=== PATIENT | female | born 1960 | race Hispanic/Latino ===

== ENCOUNTER 2017-10-27 09:18 | Emergency (ER) | payer OTHER ==
[~2017-10-27] VITALS: Ht 147.3 cm; Wt 58.5 kg
[~2017-10-27 09:18] MED LIST: BACLOFEN10 MG PO; BENTYL10 MG PO; GABAPENTIN300 MG PO; HYDROCODON-ACE1 EA11 PO; KLONOPIN0.5 MG PO; LIPITOR20 MG PO; NAPROXEN250 MG PO; NORVASC5 MG PO; PHENERGAN SUPP25 MG PR; TYLENOL # 31 EA PO; ZOFRAN8 MG PO; ZOLOFT50 MG PO
[2017-10-27] MEDS ORDERED: SODIUM CHLORIDE 0.9% 1000ML 1,000 ML IV STA (10:10)
[2017-10-27 10:27] LABS: BASOPHILS % 0.3 % (0.0-1.0); EOSINOPHILS # (AUTO) 0.1 (0.0-0.4); HEMATOCRIT 38.4 % (34.2-44.1); LYMPHOCYTES # (AUTO) 2.1 (1.0-3.2); LYMPHOCYTES % 30.5 % (18.0-39.1); MEAN CORPUSCULAR HEMOGLOBIN 30.4 pg (28-32); MEAN CORPUSCULAR HGB CONC 33.9 g/dL (31-35); MEAN CORPUSCULAR VOLUME 89.7 fL (81-99); MONOCYTES # (AUTO) 0.5 (0.2-0.8); MONOCYTES % 6.4 % (4.4-11.3); NEUTROPHILS # (AUTO) 4.2 (2.1-6.9); NEUTROPHILS % 60.4 % (38.7-80.0); PLATELET COUNT 263 x10e3/uL (140-360); RED BLOOD COUNT 4.28 x10e6/uL (3.6-5.1)
[2017-10-27 10:40] LABS: ALANINE AMINOTRANSFERASE 19 IU/L (0-55); ALBUMIN 3.6 g/dL (3.5-5.0); ALKALINE PHOSPHATASE 120 IU/L (40-150); ANION GAP 10.9 mmol/L (8-16); BLOOD UREA NITROGEN 13 mg/dL (7-26); BUN/CREATININE RATIO 18 (6-25); CALCIUM 8.9 mg/dL (8.4-10.2); CARBON DIOXIDE 26 mmol/L (22-29); CHLORIDE 108 mmol/L (98-107); CREATINE KINASE 48 IU/L (29-168); CREATININE, SERUM 0.74 mg/dL (0.57-1.11); EST GLOMERULAR FILTRATION RATE > 60 ML/MIN (60-); GLUCOSE 84 mg/dL (74-118); POTASSIUM 3.9 mmol/L (3.5-5.1); SODIUM 141 mmol/L (136-145)
--- NOTE | 2017-10-27 10:46 | Diagnostic Imaging Report ---
PROCEDURE:CHEST 2 VIEWS TECHNIQUE:PA and lateral chest INDICATION:Cough; congestion COMPARISON:Patients [facility], , CHEST 2 VIEWS, 02/23/2016, 22:23. FINDINGS: Small right lower lobe airspace opacity. Lungs are otherwise clear. No pleural effusions. Normal heart size, mediastinal contour, and pulmonary vasculature. CONCLUSION: Small right lower lobe airspace opacity suggesting pneumonia in the setting of cough. Dictated by: Italo Whitney M.D. on 10/27/2017 at 10:54 Electronically approved by: Italo Whitney M.D. on 10/27/2017 at 10:54
[2017-10-27 13:10] VITALS: BP 127/68
== END 2017-10-27 13:25 | disposition home or self-care (01) ==
LOC: ER 09:18
DX: R05 Cough (principal); J15.9 Unspecified bacterial pneumonia; I10 Essential (primary) hypertension; Z85.038 Personal history of other malignant neoplasm of large intestine; Z85.3 Personal history of malignant neoplasm of breast
CPT/HCPCS: 36415; 71020; 80053; 82550; 82553; 83880; 84484; 85025; 87400; 99283; J7030

== ENCOUNTER 2017-11-20 01:44 | Emergency (ER) | payer OTHER ==
[~2017-11-20] VITALS: Ht 147.3 cm; Wt 58.5 kg
[2017-11-20] MEDS ORDERED: DIAZEPAM5 MG PO (01:58)
[2017-11-20] MEDS ORDERED: ALBUTEROL SULF 0.083% NEB SOLN 3 ML NEB NEB STA (02:06)
[2017-11-20] MEDS ORDERED: IPRATROPIUM BROMIDE 0.02% 2.5 ML NEB NEB ONE (02:15)
--- NOTE | 2017-11-20 03:49 | Diagnostic Imaging Report ---
EXAMINATION: CHEST 2 VIEWS INDICATION: Cough. COMPARISON: None FINDINGS: TUBES and LINES: None. LUNGS: Lungs are well inflated. Lungs are clear. There is no evidence of pneumonia or pulmonary edema. PLEURA: No pleural effusion or pneumothorax. HEART AND MEDIASTINUM: The cardiomediastinal silhouette is unremarkable. BONES AND SOFT TISSUES: No acute osseous lesion. Soft tissues are unremarkable. UPPER ABDOMEN: No free air under the diaphragm. IMPRESSION: No acute thoracic abnormality. Signed by: Dr. Jeison Salazar M.D. on 11/20/2017 3:45 AM
[2017-11-20] MEDS ORDERED: PROAIR HFA INH8.5 GM INH (04:04)
[2017-11-20] MEDS ORDERED: METHYLPREDNISOLO4 M1 PO (04:04)
[2017-11-20] MEDS ORDERED: TESSALON PERLE100 MG PO (04:05)
== END 2017-11-20 04:19 | disposition home or self-care (01) ==
LOC: ER 01:44
DX: R05 Cough (principal); J98.01 Acute bronchospasm; I10 Essential (primary) hypertension; F32.9 Major depressive disorder, single episode, unspecified; F41.9 Anxiety disorder, unspecified; Z85.038 Personal history of other malignant neoplasm of large intestine
CPT/HCPCS: 71046; 93005; 94640; 99284

== ENCOUNTER 2017-11-22 12:40 | Emergency (ER) | payer OTHER ==
[~2017-11-22] VITALS: Ht 147.3 cm; Wt 58.5 kg
[~2017-11-22 12:40] MED LIST changes: +DIAZEPAM5 MG PO; +METHYLPREDNISOLO4 M1 PO; +PROAIR HFA INH8.5 GM INH; +TESSALON PERLE100 MG PO
[2017-11-22] MEDS ORDERED: ALBUTEROL SULF 0.083% NEB SOLN 3 ML NEB NEB STA ×2 (12:52→16:31)
[2017-11-22] MEDS ORDERED: IPRATROPIUM BROMIDE 0.02% 2.5 ML NEB NEB STA ×2 (12:52→16:31)
[2017-11-22] MEDS ORDERED: SODIUM CHLORIDE 0.9% 1000ML 1,000 ML IV STA (12:52)
[2017-11-22] MEDS ORDERED: DEXAMETHASONE SOD PHOS 10 MG/1 ML VIAL INJ ONE (13:00)
[2017-11-22] MEDS ORDERED: ACETAMINOPHEN/CODEINE ELIX 120-12 MG/5 ML UDC PO ONE ×2 (13:00→16:45)
--- NOTE | 2017-11-22 14:38 | Diagnostic Imaging Report ---
PROCEDURE: Frontal and lateral views of the chest. COMPARISON: 11/20/17 INDICATIONS: COUGH, CHETS PAIN FINDINGS: Lines/tubes: None. Lungs: The lungs are well inflated and clear. There is no evidence of pneumonia or pulmonary edema. Pleura: There is no pleural effusion or pneumothorax. Heart and mediastinum: The heart and the mediastinum are normal. Bones: No acute bony abnormality. IMPRESSION: 1. No acute cardiopulmonary disease. Dictated by: Braxton Miguel M.D. on 11/22/2017 at 14:47 Electronically approved by: Braxton Miguel M.D. on 11/22/2017 at 14:47
[2017-11-22 15:16] LABS: BASOPHILS % 0.2 % (0.0-1.0); EOSINOPHILS % 0.2 % (0.0-6.0); HEMATOCRIT 44.2 % (34.2-44.1); HEMOGLOBIN 14.4 g/dL (12.0-16.0); LYMPHOCYTES # (AUTO) 2.7 (1.0-3.2); LYMPHOCYTES % 29.9 % (18.0-39.1); MEAN CORPUSCULAR HEMOGLOBIN 29.9 pg (28-32); MEAN CORPUSCULAR HGB CONC 32.6 g/dL (31-35); MEAN CORPUSCULAR VOLUME 91.7 fL (81-99); MONOCYTES # (AUTO) 0.5 (0.2-0.8); MONOCYTES % 5.4 % (4.4-11.3); NEUTROPHILS # (AUTO) 5.8 (2.1-6.9); NEUTROPHILS % 63.7 % (38.7-80.0); PLATELET COUNT 290 x10e3/uL (140-360); RED BLOOD COUNT 4.82 x10e6/uL (3.6-5.1); RED CELL DISTRIBUTION WIDTH 13.2 % (11.7-14.4)
[2017-11-22 15:25] LABS: INR 0.95; PROTHROMBIN TIME 13.1 seconds (11.9-14.5)
[2017-11-22 15:26] LABS: PARTIAL THROMBOPLASTIN TIME 29.3 seconds (23.8-35.5)
[2017-11-22 15:33] LABS: ALANINE AMINOTRANSFERASE 15 IU/L (0-55); ALBUMIN 4.3 g/dL (3.5-5.0); ALBUMIN/GLOBULIN RATIO 1.1 (0.8-2.0); ALKALINE PHOSPHATASE 117 IU/L (40-150); ANION GAP 12.1 mmol/L (8-16); BLOOD UREA NITROGEN 14 mg/dL (7-26); BUN/CREATININE RATIO 18 (6-25); CALCIUM 9.5 mg/dL (8.4-10.2); CARBON DIOXIDE 27 mmol/L (22-29); CHLORIDE 107 mmol/L (98-107); CREATINE KINASE 74 IU/L (29-168); CREATININE, SERUM 0.78 mg/dL (0.57-1.11); EST GLOMERULAR FILTRATION RATE > 60 ML/MIN (60-); GLUCOSE 101 mg/dL (74-118); POTASSIUM 4.1 mmol/L (3.5-5.1); SODIUM 142 mmol/L (136-145)
== END 2017-11-22 18:05 | disposition home or self-care (01) ==
LOC: ER 12:40
DX: R50.9 Fever, unspecified (principal); R05 Cough; J20.9 Acute bronchitis, unspecified; Z85.3 Personal history of malignant neoplasm of breast; Z85.048 Personal history of other malignant neoplasm of rectum, rectosigmoid junction, and anus; Z87.19 Personal history of other diseases of the digestive system
CPT/HCPCS: 36415; 71020; 80053; 82550; 82553; 83605; 84484; 85025; 85379; 85610; 85730; 87400; 93005; 94640; 99283; J1100; J7030; 71046

== ENCOUNTER 2018-07-09 08:07 | Inpatient (IN) | payer OTHER ==
[~2018-07-09] VITALS: Ht 147.3 cm; Wt 72.1 kg
[2018-07-09 08:57] LABS: CLARITY,URINE CLEAR (CLEAR); COLOR,URINE AMBER (YELLOW); KETONES,URINE NEGATIVE (NEGATIVE); LEUKOCYTE ESTERASE ,URINE NEGATIVE (NEGATIVE); NITRITE,URINE NEGATIVE (NEGATIVE); PROTEIN,URINE DIPSTICK TRACE (NEGATIVE)
[2018-07-09 08:58] LABS: BILIRUBIN,URINE 2+ (NEGATIVE); URINE UROBILINOGEN 4 mg/dL (0.2 - 1)
[2018-07-09 09:11] LABS: EPITHELIAL CELLS,URINE MANY /LPF
[2018-07-09 09:16] LABS: BASOPHILS % 0.2 % (0.0-1.0); EOSINOPHILS # (AUTO) 0.1 (0.0-0.4); EOSINOPHILS % 1.3 % (0.0-6.0); HEMATOCRIT 39.3 % (34.2-44.1); HEMOGLOBIN 12.8 g/dL (12.0-16.0); LYMPHOCYTES # (AUTO) 1.3 (1.0-3.2); LYMPHOCYTES % 29.1 % (18.0-39.1); MEAN CORPUSCULAR HEMOGLOBIN 29.9 pg (28-32); MEAN CORPUSCULAR HGB CONC 32.6 g/dL (31-35); MEAN CORPUSCULAR VOLUME 91.8 fL (81-99); MONOCYTES # (AUTO) 0.4 (0.2-0.8); MONOCYTES % 9.8 % (4.4-11.3); NEUTROPHILS # (AUTO) 2.7 (2.1-6.9); NEUTROPHILS % 59.4 % (38.7-80.0); PLATELET COUNT 174 x10e3/uL (140-360); RED BLOOD COUNT 4.28 x10e6/uL (3.6-5.1); RED CELL DISTRIBUTION WIDTH 13.7 % (11.7-14.4)
[2018-07-09 09:31] LABS: ALANINE AMINOTRANSFERASE 1024 IU/L (0-55); ALBUMIN 3.3 g/dL (3.5-5.0); ALBUMIN/GLOBULIN RATIO 0.8 (0.8-2.0); BLOOD UREA NITROGEN 10 mg/dL (7-26); BUN/CREATININE RATIO 13 (6-25); CALCIUM 9.2 mg/dL (8.4-10.2); CARBON DIOXIDE 25 mmol/L (22-29); CHLORIDE 105 mmol/L (98-107); CREATININE, SERUM 0.75 mg/dL (0.57-1.11); EST GLOMERULAR FILTRATION RATE > 60 ML/MIN (60-); GLUCOSE 112 mg/dL (74-118); SODIUM 139 mmol/L (136-145)
[2018-07-09 09:33] LABS: CALCIUM OXALATE CRYSTALS,UR MANY (FEW)
[2018-07-09] MEDS ORDERED: ONDANSETRON HCL INJ 2 MG/ML VIAL IV STA (09:38)
[2018-07-09] MEDS ORDERED: MORPHINE SULFATE 2 MG/ML SYR IV STA (09:38)
[2018-07-09] MEDS ORDERED: HYDROMORPHONE 1MG/1ML INJ IV STA (09:45)
[2018-07-09] MEDS ORDERED: PIPER-TAZ 3.375 GM 50 ML IV STA (09:45)
--- NOTE | 2018-07-09 09:52 | Diagnostic Imaging Report ---
EXAMINATION: PA and lateral views of the chest. COMPARISON: Chest two views 11/22/2017 CLINICAL HISTORY: Fever, chills, nausea DISCUSSION: Lines/tubes: None. Lungs: The lungs are well inflated and clear. There is no evidence of pneumonia or pulmonary edema. Pleura: There is no pleural effusion or pneumothorax. Heart and mediastinum: Cardiomediastinal silhouette is unremarkable. Pulmonary vasculature is normal. Bones and soft tissues: No acute bony abnormalities. Mild age-appropriate degenerative changes in the thoracic spine IMPRESSION: No acute cardiopulmonary abnormalities. Signed by: Dr. Ravindra Burton M.D. on 07/09/2018 9:49 AM
[2018-07-09 09:55] LABS: ALKALINE PHOSPHATASE 441 IU/L (40-150)
[2018-07-09] MEDS ORDERED: SODIUM CHLORIDE 0.9% 1000ML 1,000 ML ONE (11:50)
--- NOTE | 2018-07-09 12:21 | Diagnostic Imaging Report ---
EXAM: Right Upper Quadrant Ultrasound INDICATION: \S\ELEVATED LFT'S AND FEVER \S.br\COMPARISON: CT abdomen and pelvis 11/23/2015 TECHNIQUE: Transverse and longitudinal images of the right upper abdomen were obtained. FINDINGS: Liver: Size: 13.7 cm in the right midclavicular line, normal Appearance: Normal echogenicity, smooth contour Mass: No focal masses Gallbladder: Stones/Sludge: None Wall: 0.2 cm Appearance: No wall thickening, pericholecystic fluid or hydrops. Sonographic Fatima's Sign: Negative Bile Ducts: Intrahepatic Ducts: No dilatation Extrahepatic Ducts: Common bile duct measures 0.2 cm, no dilatation Pancreas: Obscured by overlying bowel gas. Kidneys: Length: Right 10.4 cm Echogenicity: Normal Collecting System: No hydronephrosis Stone: None Cyst/Mass: None Vessels: Aorta: Obscured by overlying bowel gas. Inferior Vena Cava: Visualized portions are normal Main Portal Vein: 0.9 cm, normal size with hepatopetal flow. Free Fluid: No ascites or pleural effusion IMPRESSION: 1. Pancreas and aorta are obscured by overlying bowel gas. Otherwise, unremarkable exam. Signed by: Dr. Ravindra Burton M.D. on 07/09/2018 12:18 PM
[2018-07-09] MEDS: ONDANSETRON HCL INJ 2 MG/ML VIAL IV PRN ×2 (16:10→23:09)
[2018-07-09] MEDS: CEFEPIME HCL 1 GM VIAL IV SCH (16:10)
[2018-07-09] MEDS: D5.45%NS/KCL 20MEQ 1,000 ML IV SCH (16:10)
[2018-07-09] MEDS: HYDROMORPHONE 1MG/1ML INJ IV PRN (16:10)
--- NOTE | 2018-07-09 16:14 | Diagnostic Imaging Report ---
EXAMINATION: CT of the abdomen and pelvis with contrast. TECHNIQUE: Spiral CT images of the abdomen and pelvis were performed from the lung bases to the lesser trochanters after the intravenous administration of 100 cc of Isovue 370 and the oral administration of water. Coronal and sagittal reformatted images were obtained. COMPARISON: CT abdomen and pelvis 11/23/2015 CLINICAL HISTORY:Fever, chills, acute hepatitis, lower abdominal pain for 2 days DISCUSSION: ABDOMEN/PELVIS: LOWER THORAX:Linear subsegmental atelectasis versus scarring in the right lower lobe HEPATOBILIARY: Diffuse hepatic steatosis. No focal lesions. Normal hepatic contour and size. No intra or extrahepatic biliary ductal dilation. GALLBLADDER: No radio-opaque stones or sludge. No wall thickening or pericholecystic fluid. SPLEEN: No splenomegaly. PANCREAS: No focal masses or ductal dilatation. ADRENALS: No adrenal nodules. KIDNEYS/URETERS: No hydronephrosis, stones, or solid mass lesions. PELVIC ORGANS/BLADDER: Bladder is unremarkable. Uterus is absent. No adnexal masses. PERITONEUM/RETROPERITONEUM: No free air or free fluid. LYMPH NODES: No intra-abdominal, retroperitoneal, pelvic or inguinal lymphadenopathy. VESSELS: The celiac trunk,superior and inferior mesenteric and bilateral renal arteries are patent The portal, superior mesenteric and splenic veins are patent. GI TRACT: No bowel dilation or evidence of obstruction. No pericolonic inflammatory changes. Stable soft tissue thickening in the presacral area, consistent with postoperative changes (series 2, image 70 and sagittal image 61). BONES AND SOFT TISSUE: No aggressive lytic lesions. Facet hypertrophy L5-S1. No soft tissue abnormalities. IMPRESSION: 1. No acute abdominopelvic abnormalities. Bowel is unremarkable. 2. Stable postoperative changes in the presacral region since 2016. 3. Diffuse hepatic steatosis. No focal lesions. Signed by: Dr. Ravindra Burton M.D. on 07/09/2018 4:11 PM
[2018-07-09] MEDS ORDERED: SODIUM CHLORIDE 0.9% 50ML 50 ML ONE (16:19)
[2018-07-09] MEDS ORDERED: IOPAMIDOL 370 MG/ML 200 ML INFUS..BTL INJ ONE (16:20)
[2018-07-09 16:46] LABS: INR 1.08; PROTHROMBIN TIME 13.2 seconds (11.9-14.5)
[2018-07-09 16:47] LABS: PARTIAL THROMBOPLASTIN TIME 29.7 seconds (23.8-35.5)
[2018-07-09 20:20] VITALS: BP 142/71
--- NOTE | 2018-07-09 20:28 | History and Physical ---
REASON FOR ADMISSION: This 57-year-old lady comes in with abdominal pain. HISTORY OF PRESENT ILLNESS: Ms. Martha Rosales is a 57-year-old female who was in her usual state of health until about a week ago. The patient started to have some abdominal pain. No recent travel. No history of travel. No recent history of taking exotic foods. The patient started with abdominal pain, and the pain was intractable. The patient went to work and was sent home after that. For the last 2 to 3 days, the patient had chills and fever that measured at 102 degrees. The patient comes in today for assessment of abdominal pain. PAST MEDICAL HISTORY 1. History of hypertension. 2. History of hyperlipidemia. 3. History of breast cancer. 4. History of ovarian cancer. 5. History of colon cancer. 6. History of COPD. SURGICAL HISTORY 1. History of hysterectomy. 2. History of cyst removal. 3. History of colon resection. 4. History of ostomy. 5. History of breast mastectomy. 6. History of appendectomy. 7. History of ovaries removed. FAMILY HISTORY: History of diabetes and hypertension. MEDICATIONS: At this time, no other medicines. The patient does take a statin. REVIEW OF SYSTEMS: Negative for chest pain. Positive for shortness of breath. Positive for nausea. Positive for vomiting. No constipation. No rectal bleeding. No hematochezia. No hematemesis. Positive for abdominal pain. No diplopia. No blurry vision. PHYSICAL EXAMINATION VITALS: Temperature 97.4, blood pressure 153/82, pulse 53. GENERAL: The patient is alert and oriented times 3. HEENT: Normocephalic and atraumatic. Icteric. ABDOMEN: Tender diffusely. Right upper quadrant and right lower quadrant tenderness, also epigastric tenderness. EXTREMITIES: No clubbing. No cyanosis. No edema. LABORATORY VALUES: Initial sodium was 139. AST was 726, ALT 1024, ALP 441, total protein 7.4. Hematology: White count is 4.50. Otherwise, everything is normal. Coags were normal. Serology pending hepatitis panel, toxoplasma panel, and EBU panel too. ASSESSMENT 1. A 57-year-old female with abdominal pain. 2. Elevated liver enzymes. 3. History of colon cancer. 4. History of ovarian cancer. 5. History of breast cancer. 6. Hypertension. 7. Hyperlipidemia. The patient has been started on hydromorphone, Zofran and cefepime 1 gram. Zosyn has been started, too. Will consult Dr. Rivera and also Dr. Mariusz Holley. Further recommendations per clinical course. IV fluids will be started, and Zofran will be given, too. The patient will also start back on her home medications, which include gabapentin. The patient has been on naproxen, Zofran, and sertraline 50 mg. Further recommendations per clinical course. Will continue monitoring her labs and also follow up with the consultants. Job#: [id number]
[2018-07-09 20:58] VITALS: BP 146/67
[2018-07-09 21:00] VITALS: BP 146/67
--- NOTE | 2018-07-09 21:19 | Consultation ---
DATE OF CONSULTATION: REASON FOR CONSULTATION: The patient has fever and chills, elevated liver enzymes. HISTORY OF PRESENT ILLNESS: Patient who is a 57-year-old female, who has history of breast cancer, history of ovarian cancer, history of colon cancer. The patient is telling she has these cancers several years ago. She was followed by [facility]. She was here recently for pneumonia. The patient is presenting with 1-month history of on and off abdominal pain, not feeling well, gets better, gets back again. The patient have fever and chills, anorexia. The patient came to emergency room. On admission, she was evaluated. It was found that she had elevated liver enzymes. Patient is being admitted. Patient does have abdominal pain, which is lower part of her abdomen. PAST MEDICAL HISTORY: Colon cancer 7 years ago, breast cancer 3 years ago, ovarian cancer 7 years ago. She said there are all clear, but she does not have any followup. LABORATORY DATA: Sodium 139, potassium 4.0, bilirubin was 3.1, AST 726, ALT 1024. Her white count is 4.5, hemoglobin 12.6, hematocrit 39, her platelets 174,000. Blood cultures are still pending. PHYSICAL EXAMINATION GENERAL: She is currently alert, oriented, does not seem to be in acute distress. VITALS: Stable, currently afebrile. HEENT: Normocephalic. Not icteric. NECK: Supple. CHEST: Clear bilaterally. HEART: S1 and S2. No S3, murmur. ABDOMEN: Soft. Her CAT scan did not reveal acute abnormality. IMPRESSION: Fever, chills, elevated liver enzymes. Computed tomography there does not seem to be a liver abnormality at the present time. An ultrasound of the liver also was not a good quality because there was bowel gas. I am concerned about intrahepatic, intrabiliary process and lesion. Continue with antibiotics. Will discuss with radiology what is the best way to assess that area. Will check amylase, will check lipase. May need hematology, oncology evaluation with the history of all the cancers that she has been having and she has not followed up with anyone yet. Will follow with you. Thank you for asking me to see this patient. Job#: [id number]
[2018-07-09] MEDS ORDERED: SINCALIDE 3 MCG/VIAL INJ ONE (22:39)
[2018-07-10] VITALS (8 sets, daily range): BP systolic 116–162; BP diastolic 56–74
[2018-07-10] MEDS: HYDROMORPHONE 1MG/1ML INJ IV PRN ×3 (01:50→21:52)
[2018-07-10] MEDS: D5.45%NS/KCL 20MEQ 1,000 ML IV SCH ×2 (04:21→17:31)
[2018-07-10] MEDS: CEFEPIME HCL 1 GM VIAL IV SCH ×2 (04:21→15:45)
--- NOTE | 2018-07-10 04:41 | Diagnostic Imaging Report ---
Hepatobiliary Scan with Gallbladder Ejection Fraction Clinical information: Upper abdominal pain Report: Following intravenous administration of 6 millicuries of Tc-99m mebrofenin, dynamic images of the abdomen in the anterior projection were obtained through 30 and 60 minutes. The patient was pretreated with Sincalide (CCK analog) 1.2 micrograms given NPO status for greater than 12-24 hours. Additional Sincalide (CCK analog) 1.2 micrograms was administered over 30 minutes with imaging for determination of gallbladder ejection fraction. Perfusion to the liver is normal. Extraction of tracer from the blood pool by the liver parenchyma is normal. Tracer is seen promptly within the biliary tract. The gallbladder begins to fill by 20 minutes post-injection of tracer and fills adequately. Tracer is seen in the small bowel by about 45 minutes. The gallbladder ejection fraction with administration of sincalide is 96% (normal greater than 40%). Impression: 1. Filling of the gallbladder excludes the diagnosis of acute cystic duct obstruction/acute cholecystitis. 2. Normal gallbladder ejection fraction of 96% does not support the clinical diagnosis of chronic cholecystitis/gallbladder dyskinesia. Signed by: Dr Faviola Cameron MD on 07/10/2018 4:37 AM
[2018-07-10] MEDS: ONDANSETRON HCL INJ 2 MG/ML VIAL IV PRN ×4 (06:20→21:52)
[2018-07-10 06:23] LABS: BASOPHILS % 0.6 % (0.0-1.0); EOSINOPHILS % 0.8 % (0.0-6.0); HEMATOCRIT 38.1 % (34.2-44.1); HEMOGLOBIN 12.5 g/dL (12.0-16.0); LYMPHOCYTES # (AUTO) 1.4 (1.0-3.2); LYMPHOCYTES % 26.9 % (18.0-39.1); MEAN CORPUSCULAR HEMOGLOBIN 30.1 pg (28-32); MEAN CORPUSCULAR HGB CONC 32.8 g/dL (31-35); MEAN CORPUSCULAR VOLUME 91.8 fL (81-99); MONOCYTES # (AUTO) 0.5 (0.2-0.8); MONOCYTES % 9.9 % (4.4-11.3); NEUTROPHILS # (AUTO) 3.2 (2.1-6.9); NEUTROPHILS % 61.4 % (38.7-80.0); PLATELET COUNT 183 x10e3/uL (140-360); RED BLOOD COUNT 4.15 x10e6/uL (3.6-5.1); RED CELL DISTRIBUTION WIDTH 13.8 % (11.7-14.4)
[2018-07-10 06:44] LABS: ALANINE AMINOTRANSFERASE 1159 IU/L (0-55); ALBUMIN 3.1 g/dL (3.5-5.0); ALBUMIN/GLOBULIN RATIO 0.8 (0.8-2.0); ALKALINE PHOSPHATASE 408 IU/L (40-150); AMYLASE 28 U/L (25-125); ANION GAP 13.2 mmol/L (8-16); BLOOD UREA NITROGEN 11 mg/dL (7-26); BUN/CREATININE RATIO 15 (6-25); CALCIUM 8.9 mg/dL (8.4-10.2); CARBON DIOXIDE 24 mmol/L (22-29); CHLORIDE 104 mmol/L (98-107); CREATININE, SERUM 0.72 mg/dL (0.57-1.11); EST GLOMERULAR FILTRATION RATE > 60 ML/MIN (60-); GLUCOSE 123 mg/dL (74-118); LIPASE 7 U/L (8-78); POTASSIUM 4.2 mmol/L (3.5-5.1); SODIUM 137 mmol/L (136-145)
[2018-07-10] MEDS ORDERED: GADOBENATE DIMEGLUMINE 1 ML IV ONE (23:58)
[2018-07-11 01:33] VITALS: BP 121/57
--- NOTE | 2018-07-11 02:00 | Diagnostic Imaging Report ---
EXAM: MRI MRCP O DATE: 07/11/2018 11:30 PM INDICATION: Elevated LFT , fever, chills COMPARISON: None TECHNIQUE: Multiplanar, multisequence imaging of the abdomen was performed pre and post-administration of IV contrast, 12 mL of MultiHance. Dynamic enhanced images of the abdomen were included. 3-D MRCP fat-saturated sequence was performed post contrast with MIP reformations. FINDINGS: LIVER/BILIARY: Liver is normal in contour and signal. No focal hepatic lesions. There is no intrahepatic or extrahepatic biliary ductal dilation. No evidence of choledocholithiasis. GALLBLADDER: No T2 filling defects to suggest stones. SPLEEN: Unremarkable PANCREAS: Unremarkable ADRENALS: No nodules KIDNEYS: No suspicious renal masses. No hydronephrosis. GI TRACT: No wall thickening or evidence of obstruction. VESSELS: Unremarkable PERITONEUM/RETROPERITONEUM: No free fluid LYMPH NODES: No lymphadenopathy BONES: No suspicious bone lesions. IMPRESSION: No acute abnormalities. Normal appearance of the biliary tree without ductal dilation or choledocholithiasis. Signed by: Dr Faviola Cameron MD on 07/11/2018 1:57 AM
[2018-07-11] MEDS: CEFEPIME HCL 1 GM VIAL IV SCH ×2 (03:34→16:30)
[2018-07-11] MEDS: HYDROMORPHONE 1MG/1ML INJ IV PRN ×2 (03:42→08:52)
[2018-07-11] MEDS: ONDANSETRON HCL INJ 2 MG/ML VIAL IV PRN ×2 (03:42→08:52)
[2018-07-11 04:00] VITALS: BP 99/53
[2018-07-11 05:49] LABS: BASOPHILS % 0.2 % (0.0-1.0); EOSINOPHILS # (AUTO) 0.1 (0.0-0.4); EOSINOPHILS % 1.5 % (0.0-6.0); HEMATOCRIT 37.4 % (34.2-44.1); HEMOGLOBIN 11.9 g/dL (12.0-16.0); LYMPHOCYTES # (AUTO) 1.5 (1.0-3.2); MEAN CORPUSCULAR HEMOGLOBIN 29.8 pg (28-32); MEAN CORPUSCULAR HGB CONC 31.8 g/dL (31-35); MEAN CORPUSCULAR VOLUME 93.5 fL (81-99); MONOCYTES # (AUTO) 0.6 (0.2-0.8); MONOCYTES % 11.2 % (4.4-11.3); NEUTROPHILS % 58.7 % (38.7-80.0); PLATELET COUNT 188 x10e3/uL (140-360); RED CELL DISTRIBUTION WIDTH 13.8 % (11.7-14.4)
--- NOTE | 2018-07-11 06:20 | Progress Note ---
DATE: This patient came in for abdominal pain. She still complains of abdominal pain. Was able to ambulate yesterday. Had some pain on urination, but she is feeling better. Her medications were reconciled. Liver enzymes are still elevated. PHYSICAL EXAMINATION GENERAL: The patient is alert and oriented times 3. VITAL SIGNS: Temperature is 97.5, pulse 55, blood pressure 121/57. HEENT: Normocephalic and atraumatic. Pupils reactive to light and accommodation. There is icterus. CV: S1 and S2 normal. Regular rate and rhythm. ABDOMEN: Tender in the right upper quadrant in the suprapubic area. EXTREMITIES: No clubbing. No cyanosis. No edema. LABORATORY VALUES: White count is 5.18, hemoglobin 11.9 and platelet count is 198,000. Chemistries are still pending, but yesterday's chemistries were AST of 870, ALT 1159, amylase 28, and lipase of 7. Urine culture is negative. ASSESSMENT 1. Right upper quadrant abdominal pain. 2. Elevated liver enzymes: HIDA scan was within normal limits. Hepatitis panel is pending. An magnetic resonance cholangiopancreatography has been ordered by Dr. Holley. Will continue monitoring the patient. If magnetic resonance cholangiopancreatography is normal, esophagogastroduodenoscopy will be done. 3. The patient has a history of colon cancer, ovarian cancer and breast cancer: Has been followed by MD Garcia. 4. Hypertension: Continue current medications. 5. Hyperlipidemia: Continue current medications. Will continue checking her liver enzymes and follow up with gastroenterology. Further recommendations depending on clinical care. Job#: [id number] RENALDO
[2018-07-11 06:22] LABS: ALANINE AMINOTRANSFERASE 1286 IU/L (0-55); ALBUMIN 2.9 g/dL (3.5-5.0); ALBUMIN/GLOBULIN RATIO 0.8 (0.8-2.0); ALKALINE PHOSPHATASE 361 IU/L (40-150); ANION GAP 10.8 mmol/L (8-16); BLOOD UREA NITROGEN 8 mg/dL (7-26); BUN/CREATININE RATIO 11 (6-25); CALCIUM 8.9 mg/dL (8.4-10.2); CARBON DIOXIDE 27 mmol/L (22-29); CHLORIDE 106 mmol/L (98-107); CREATININE, SERUM 0.75 mg/dL (0.57-1.11); EST GLOMERULAR FILTRATION RATE > 60 ML/MIN (60-); GLUCOSE 120 mg/dL (74-118); MAGNESIUM 2.1 MG/DL (1.3-2.1); POTASSIUM 4.8 mmol/L (3.5-5.1); SODIUM 139 mmol/L (136-145)
[2018-07-11] MEDS: D5.45%NS/KCL 20MEQ 1,000 ML IV SCH ×2 (06:39→21:35)
[2018-07-11 08:56] VITALS: BP 130/74
[2018-07-11 12:09] VITALS: BP 130/64
[2018-07-11] MEDS ORDERED: FENTANYL CITRATE/PF 100MCG/2 ML INJ ONE (15:09)
[2018-07-11] MEDS ORDERED: MIDAZOLAM HCL 2 MG/2 ML VIAL ONE (15:09)
[2018-07-11 18:18] VITALS: BP 165/72
[2018-07-11] MEDS ORDERED: PROPOFOL IV EMULSION 10 MG/ML 50 ML VIAL ONE (18:41)
[2018-07-11] MEDS ORDERED: LIDOCAINE HCL 2% LOCAL INJ 5 ML SDV VIAL INJ ONE (18:41)
[2018-07-11 20:00] VITALS: BP 131/68
[2018-07-12] VITALS (9 sets, daily range): BP systolic 121–166; BP diastolic 61–74
[2018-07-12] MEDS: HYDROMORPHONE 1MG/1ML INJ IV PRN ×3 (00:40→23:52)
[2018-07-12] MEDS: ONDANSETRON HCL INJ 2 MG/ML VIAL IV PRN ×3 (00:40→23:52)
[2018-07-12] MEDS: CEFEPIME HCL 1 GM VIAL IV SCH ×2 (04:07→15:12)
[2018-07-12 07:17] LABS: ALANINE AMINOTRANSFERASE 1590 IU/L (0-55); ALBUMIN/GLOBULIN RATIO 0.8 (0.8-2.0); ALKALINE PHOSPHATASE 368 IU/L (40-150); ANION GAP 10.4 mmol/L (8-16); BLOOD UREA NITROGEN 5 mg/dL (7-26); BUN/CREATININE RATIO 7 (6-25); CALCIUM 8.9 mg/dL (8.4-10.2); CARBON DIOXIDE 28 mmol/L (22-29); CHLORIDE 104 mmol/L (98-107); CREATININE, SERUM 0.72 mg/dL (0.57-1.11); EST GLOMERULAR FILTRATION RATE > 60 ML/MIN (60-); GLUCOSE 113 mg/dL (74-118); POTASSIUM 4.4 mmol/L (3.5-5.1); SODIUM 138 mmol/L (136-145)
[2018-07-12] MEDS: D5.45%NS/KCL 20MEQ 1,000 ML IV SCH (12:30)
[2018-07-13] VITALS (8 sets, daily range): BP systolic 107–160; BP diastolic 57–87
[2018-07-13] MEDS: D5.45%NS/KCL 20MEQ 1,000 ML IV SCH ×2 (00:42→15:40)
[2018-07-13] MEDS: CEFEPIME HCL 1 GM VIAL IV SCH ×2 (03:39→15:40)
[2018-07-13 06:04] LABS: BASOPHILS % 0.5 % (0.0-1.0); EOSINOPHILS # (AUTO) 0.1 (0.0-0.4); EOSINOPHILS % 1.6 % (0.0-6.0); HEMATOCRIT 39.8 % (34.2-44.1); HEMOGLOBIN 12.8 g/dL (12.0-16.0); LYMPHOCYTES # (AUTO) 2.9 (1.0-3.2); LYMPHOCYTES % 45.9 % (18.0-39.1); MEAN CORPUSCULAR HEMOGLOBIN 30.2 pg (28-32); MEAN CORPUSCULAR HGB CONC 32.2 g/dL (31-35); MEAN CORPUSCULAR VOLUME 93.9 fL (81-99); MONOCYTES # (AUTO) 0.8 (0.2-0.8); MONOCYTES % 12.4 % (4.4-11.3); NEUTROPHILS # (AUTO) 2.5 (2.1-6.9); NEUTROPHILS % 39.3 % (38.7-80.0); PLATELET COUNT 248 x10e3/uL (140-360); RED BLOOD COUNT 4.24 x10e6/uL (3.6-5.1); RED CELL DISTRIBUTION WIDTH 13.9 % (11.7-14.4)
[2018-07-13 06:30] LABS: ALANINE AMINOTRANSFERASE 1651 IU/L (0-55); ALBUMIN 3.1 g/dL (3.5-5.0); ALBUMIN/GLOBULIN RATIO 0.8 (0.8-2.0); ALKALINE PHOSPHATASE 403 IU/L (40-150); ANION GAP 10.2 mmol/L (8-16); BLOOD UREA NITROGEN 5 mg/dL (7-26); BUN/CREATININE RATIO 7 (6-25); CALCIUM 8.9 mg/dL (8.4-10.2); CARBON DIOXIDE 28 mmol/L (22-29); CHLORIDE 100 mmol/L (98-107); CREATININE, SERUM 0.71 mg/dL (0.57-1.11); EST GLOMERULAR FILTRATION RATE > 60 ML/MIN (60-); GLUCOSE 99 mg/dL (74-118); POTASSIUM 4.2 mmol/L (3.5-5.1); SODIUM 134 mmol/L (136-145)
[2018-07-13 08:27] LABS: LYMPHOCYTES % (MANUAL) 49 % (19-48); MONOCYTES % (MANUAL) 13 % (3.4-9.0); NEUTROPHILS % (MANUAL) 35 % (40-74)
[2018-07-13 08:28] LABS: ANISOCYTOSIS SLIGHT; PLATELET ESTIMATE ADEQUATE; PLATELET MORPHOLOGY COMMENT NORMAL; RBC MORPHOLOGY COMMENT NORMAL
[2018-07-13] MEDS: ONDANSETRON HCL INJ 2 MG/ML VIAL IV PRN ×2 (15:59→21:50)
[2018-07-13] MEDS: HYDROMORPHONE 1MG/1ML INJ IV PRN ×2 (15:59→21:50)
[2018-07-14] VITALS (8 sets, daily range): BP systolic 110–149; BP diastolic 63–78
[2018-07-14] MEDS: CEFEPIME HCL 1 GM VIAL IV SCH ×2 (03:31→16:18)
[2018-07-14] MEDS: D5.45%NS/KCL 20MEQ 1,000 ML IV SCH ×2 (05:14→14:05)
[2018-07-14] MEDS: ONDANSETRON HCL INJ 2 MG/ML VIAL IV PRN ×3 (05:15→17:59)
[2018-07-14] MEDS: HYDROMORPHONE 1MG/1ML INJ IV PRN ×3 (05:15→17:59)
[2018-07-14 06:01] LABS: ALANINE AMINOTRANSFERASE 1408 IU/L (0-55); ALBUMIN 3.2 g/dL (3.5-5.0); ALBUMIN/GLOBULIN RATIO 0.8 (0.8-2.0); ALKALINE PHOSPHATASE 402 IU/L (40-150); ANION GAP 11.5 mmol/L (8-16); BLOOD UREA NITROGEN < 5 mg/dL (7-26); BUN/CREATININE RATIO 7 (6-25); CALCIUM 9.2 mg/dL (8.4-10.2); CARBON DIOXIDE 28 mmol/L (22-29); CHLORIDE 102 mmol/L (98-107); CREATININE, SERUM 0.68 mg/dL (0.57-1.11); EST GLOMERULAR FILTRATION RATE > 60 ML/MIN (60-); GLUCOSE 107 mg/dL (74-118); POTASSIUM 4.5 mmol/L (3.5-5.1); SODIUM 137 mmol/L (136-145)
== END 2018-07-14 20:42 | disposition home or self-care (01) | DRG 865 ==
LOC: ER 08:07 → ERHOLD 15:17 → MED/SURG 19:07
PROVIDERS: ADMIT Family Medicine; ATTEND Family Medicine
PROC: 0DD78ZX Extraction of Stomach, Pylorus, Via Natural or Artificial Opening Endoscopic, Diagnostic (ICD-10-PCS; 2018-07-11)
PROC: 0DD48ZX Extraction of Esophagogastric Junction, Via Natural or Artificial Opening Endoscopic, Diagnostic (ICD-10-PCS; principal; 2018-07-11 14:30)
DX: B27.90 Infectious mononucleosis, unspecified without complication (principal); K83.1 Obstruction of bile duct; N17.0 Acute kidney failure with tubular necrosis; K29.70 Gastritis, unspecified, without bleeding; K44.9 Diaphragmatic hernia without obstruction or gangrene; I10 Essential (primary) hypertension; E78.5 Hyperlipidemia, unspecified; Z85.3 Personal history of malignant neoplasm of breast; Z85.038 Personal history of other malignant neoplasm of large intestine; Z85.43 Personal history of malignant neoplasm of ovary; J44.9 Chronic obstructive pulmonary disease, unspecified
CPT/HCPCS: 36415; 43239; 71046; 74177; 74183; 76705; 78227; 80053; 81001; 82105; 82140; 82150; 82378; 83690; 83735; 85025; 85610; 85730; 86304; 86663; 86664; 86665; 86777; 86778; 87040; 87086; 88305; 88312; 96361; 99284; A9537; J0692; J1170; J2001; J2250; J2405; J2543; J2805; J7030; Q9967

== ENCOUNTER 2019-07-17 21:08 | Emergency (ER) | payer SELFPAY ==
[~2019-07-17] VITALS: Ht 147.3 cm; Wt 72.1 kg
--- OUTSIDE RECORDS SUMMARY | 2019-07-17 21:10 | XMS REPORT | Continuity of Care Document ---
Author Author [email or web address] Address Unknown Phone Unavailable Care Team Providers [employer] Manager Name Role Phone [email or web address] Unavailable Unavailable Problems Problem Status Onset Date Classification Date Reported Comments Source Malignant neoplasm of rectum 01/07/2018 04/11/2018 [facility] C20 Active 12/27/2017 [facility] Cystocele, unspecified 04/11/2018 [facility] Acquired absence of both cervix and uterus 04/11/2018 [facility] Medications No Data Provided for This Section Allergies, Adverse Reactions, Alerts No Known Medication Allergies Immunizations No Data Provided for This Section Results Order Name Results Value Reference Range Date Interpretation Comments Source CHEM PANEL eGFR 102 01/03/2018 Result Comment: The eGFR is calculated using the CKD-EPI formula. In most young, healthy individuals the eGFR will be >90 mL/min/1.73m2. The eGFR declines with age. An eGFR of 60-89 may be normal in some populations, particularly the elderly, for whom the CKD-EPI formula has not been extensively validated. Use of the eGFR is not recommended in the following populations:

Individuals with unstable creatinine concentrations, including patients and those with serious co-morbid conditions.

Patients with extremes in muscle mass or diet.

The data above are obtained from the National Kidney Disease Education Program (NKDEP) which additionally recommends that when the eGFR is used in patients with extremes of body mass index for purposes of drug dosing, the eGFR should be multiplied by the estimated BMI. [facility] CHEM PANEL POC Creatinine 0.6 0.5 - 1.4 01/03/2018 [facility] Pathology Reports No Data Provided for This Section Diagnostic Reports Report Value Date Source Pelvis wo contrast MRI EXAM: MRI pelvis HISTORY: Malignant neoplasm of the rectum COMPARISON: CT 01/03/2018 TECHNIQUE: Multiplanar, multisequence acquisition of the pelvis without contrast per rectal cancer protocol. FINDINGS: Overall image quality: Adequate 1. PRIMARY TUMOR: LOCATION: Postoperative change of low anterior resection with moderate soft tissue thickening in the presacral region. Distance to the anal verge: n/a Distance to the top of sphincter complex/anorectal junction: n/a Relationship to anterior peritoneal reflection: clear Craniocaudal length: n/a MORPHOLOGY: n/a TUMOR CHARACTERISTICS: n/a 2. T STAGE: Extramural depth of invasion: n/a MR-T category: n/a Structures with possible invasion: : Tiny air pocket in the bladder lumen and possibly the vaginal cuff. Pelvic sidewall: None Pelvic floor: Not appreciated Sacrum: Not appreciated Vessels: Not appreciated Nerves: Not appreciated FOR LOW RECTAL TUMORS: Involvement of anal sphincters: Appear intact 3. EXTRAMURAL VENOUS INVASION (EMVI): Not appreciated 4. CIRCUMFERENTIAL RESECTION MARGIN: [For T3 Tumor Only] n/a 5. TME [Superior Rectal \T\ Mesorectal Only] LYMPH NODES AND TUMOR DEPOSITS: Not seen TIKI NODE PRESENT/ABSENT: Absent. 6. EXTRA-TME LYMPH NODES [AJCC 7thed: Locoregional: internal iliac, obturator. Non- locoregional (M1): external iliac, common iliac, retroperitoneal, inguinal] Any suspicious extra-TME/ pelvic sidewall nodes? No 7. OTHER: Tiny air pocket anterior bladder lumen at midline. Small-moderate cystocele. Hysterectomy; possible tiny air pocket in the vaginal cuff. Tubular cystic focus right adnexa. Diverticula left colon. IMPRESSION: 1. Postoperative change low anterior resection with moderate soft tissue thickening presacral region limiting evaluation. No appreciable tumor recurrence. 2. Hysterectomy. Possible tiny air pocket in the vaginal cuff. Tiny air pocket in the bladder lumen; correlate for recent catheterization. Otherwise, colovaginal/vesicovaginal fistula is considered. 3. Small-moderate cystocele. 4. Cystic tubular focus right adnexa may reflect an ovarian cyst or hydrosalpinx. Transvaginal pelvic ultrasound can further evaluate. 5. Diverticula left colon without diverticulitis. SL 13 01/03/2018 [facility] Abdomen/Pelvis w IV contrast CT EXAM: CT abdomen and pelvis HISTORY: Malignant neoplasm of the rectum COMPARISON: MRI same day TECHNIQUE: Axial images of the abdomen and pelvis with sagittal and coronal reformats. 100 mL Omnipaque IV and 50 mL Omnipaque oral contrast. DLP: 430 FINDINGS: SOLID ORGANS: Mild fatty change of the liver. Mild atrophy of the pancreas. The gallbladder, spleen, kidneys, and adrenals are unremarkable. Hysterectomy. The inferior margin of the bladder extends approximately 2.4 cm below the pubococcygeal line. Small air pocket anterior bladder lumen at midline. Tiny air pocket in the vaginal cuff. GASTROINTESTINAL TRACT: Postoperative change low anterior resection with moderate soft tissue thickening presacral region. Diverticula of the left colon. No bowel obstruction. Possible sutures in the cecum. PERITONEUM AND RETROPERITONEUM: Few small retroperitoneal and mesenteric lymph nodes are nonspecific. No free fluid. Atherosclerosis aorta. LOWER CHEST: Minimal bronchiectasis lower lungs. BONES: Moderate spondylosis thoracic spine, mild spondylosis lumbar spine. Generalized osteopenia. IMPRESSION: 1. Postoperative changes of low anterior resection. No metastatic disease is seen. 2. Small air pocket in the bladder lumen and tiny air pocket in the vaginal cuff; correlate for recent catheterization. Otherwise, colovaginal/vesicovaginal fistula is considered. 3. Hysterectomy. 4. Small-moderate cystocele. 5. Diverticula left colon without diverticulitis. 6. Fatty liver. 7. Minimal bronchiectasis lung bases. SL: [id number] 01/03/2018 [facility] Consultation Notes No Data Provided for This Section Discharge Summaries No Data Provided for This Section History and Physicals No Data Provided for This Section Vital Signs No Data Provided for This Section Encounters Location Location Details Encounter Type Encounter Number Reason For Visit Attending Provider ADM Date DC Date Status Source [facility] [id number] Fabrizio Sam 01/03/2018 01/04/2018 [facility] Procedures No Data Provided for This Section Assessment and Plan No Data Provided for This Section Plan of Care No Data Provided for This Section Social History Social History Date Source No data available for this section 01/04/2018 [facility] Family History No Data Provided for This Section Advance Directives No Data Provided for This Section Functional Status No Data Provided for This Section
[2019-07-17 22:32] LABS: BASOPHILS % 0.3 % (0.0-1.0); EOSINOPHILS # (AUTO) 0.1 (0.0-0.4); EOSINOPHILS % 1.1 % (0.0-6.0); HEMATOCRIT 39.5 % (34.2-44.1); HEMOGLOBIN 13.3 g/dL (12.0-16.0); LYMPHOCYTES # (AUTO) 2.6 (1.0-3.2); LYMPHOCYTES % 36.6 % (18.0-39.1); MEAN CORPUSCULAR HEMOGLOBIN 30.6 pg (28-32); MEAN CORPUSCULAR HGB CONC 33.7 g/dL (31-35); MONOCYTES # (AUTO) 0.5 (0.2-0.8); MONOCYTES % 7.3 % (4.4-11.3); NEUTROPHILS # (AUTO) 3.9 (2.1-6.9); NEUTROPHILS % 54.6 % (38.7-80.0); PLATELET COUNT 269 x10e3/uL (140-360); RED BLOOD COUNT 4.34 x10e6/uL (3.6-5.1); RED CELL DISTRIBUTION WIDTH 12.8 % (11.7-14.4)
[2019-07-17 22:37] LABS: INR 0.93
[2019-07-17 22:38] LABS: PARTIAL THROMBOPLASTIN TIME 30.3 seconds (23.8-35.5)
[2019-07-17 22:46] LABS: BILIRUBIN,URINE NEGATIVE (NEGATIVE); CLARITY,URINE CLEAR (CLEAR); COLOR,URINE YELLOW (YELLOW); KETONES,URINE NEGATIVE (NEGATIVE); LEUKOCYTE ESTERASE ,URINE NEGATIVE (NEGATIVE); NITRITE,URINE NEGATIVE (NEGATIVE); PROTEIN,URINE DIPSTICK NEGATIVE (NEGATIVE); URINE UROBILINOGEN 0.2 mg/dL (0.2 - 1)
[2019-07-17 22:47] LABS: ALANINE AMINOTRANSFERASE 16 IU/L (0-55); ALBUMIN 3.6 g/dL (3.5-5.0); ALKALINE PHOSPHATASE 117 IU/L (40-150); BLOOD UREA NITROGEN 13 mg/dL (7-26); BUN/CREATININE RATIO 14 (6-25); CALCIUM 9.4 mg/dL (8.4-10.2); CARBON DIOXIDE 29 mmol/L (22-29); CHLORIDE 102 mmol/L (98-107); CREATININE, SERUM 0.93 mg/dL (0.57-1.11); EST GLOMERULAR FILTRATION RATE > 60 ML/MIN (60-); GLUCOSE 118 mg/dL (74-118); SODIUM 138 mmol/L (136-145)
[2019-07-17 23:05] LABS: BACTERIA,URINE MODERATE /HPF; EPITHELIAL CELLS,URINE FEW /LPF
[2019-07-17 23:13] LABS: AMYLASE 43 U/L (25-125); LIPASE 10 U/L (8-78)
[2019-07-17] MEDS ORDERED: ONDANSETRON HCL INJ 2MG/ML 2ML 2 MG/ML VIAL IV STA (23:37)
[2019-07-17] MEDS ORDERED: SODIUM CHLORIDE 0.9% 1000ML 1,000 ML IV STA (23:37)
[2019-07-17] MEDS ORDERED: PANTOPRAZOLE 40 MG 10ML VIAL IV STA (23:37)
[2019-07-17] MEDS ORDERED: PANTOPRAZOLE 40 MG 10ML VIAL ONE (23:45)
[2019-07-17] MEDS ORDERED: CEFTRIAXONE SOD 1 GM/NS 50 ML 50 ML IV ONE (23:45)
== END 2019-07-18 01:35 | disposition home or self-care (01) ==
LOC: ER 21:08
DX: R11.2 Nausea with vomiting, unspecified (principal); R10.9 Unspecified abdominal pain; R19.7 Diarrhea, unspecified; I10 Essential (primary) hypertension; E78.5 Hyperlipidemia, unspecified; Z85.038 Personal history of other malignant neoplasm of large intestine
CPT/HCPCS: 36415; 80053; 81001; 82150; 83690; 85025; 85610; 85730; 87086; 99283; C9113; J0696; J2405; J7030

== ENCOUNTER 2020-05-17 23:04 | Emergency (ER) | payer SELFPAY ==
[~2020-05-17] VITALS: Ht 147.3 cm; Wt 72.1 kg
[2020-05-17] MEDS ORDERED: KETOROLAC TROMETHAMINE 60 MG/2 ML VIAL IM ONE (23:45)
[2020-05-18 00:48] VITALS: BP 122/97
--- NOTE | 2020-05-18 00:50 | Emergency Department Note ---
History of Present Illnes History of Present Illness Chief Complaint: Chest Pain History of Present Illness This is a 59 year old female PRESENTS TO THE ER C/O RT SHOULDER PAIN RADIATING TO CHEST ONSET LAST NIGHT; PT REPORTS PAIN WHEN RAISING RT ARM UP; PT DENIES ANY RECENT STRENUOUS ACTIVITY OR HEAVY LIFTING; NAD NOTED AT THIS TIME. Historian: Patient Arrival Mode: Car Onset (how long ago): day(s) (1) Location: right shoulder Radiation: Reports other (right upper chest) Severity: moderate Onset quality: gradual Duration (how long): day(s) (1) Timing of current episode: constant Progression: worsening Chronicity: new Context: Denies recent illness, Denies recent surgery Relieving factors: other (keep rigth arm still) Exacerbating factors: other (movement of right shoudler) Associated symptoms: Reports denies other symptoms Treatments prior to arrival: none Past Medical/Family History Physician Review I have reviewed the patient's past medical and family history. Any updates have been documented here. 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 Social History Smoking Cessation: Never Smoker Alcohol Use: None Any Illegal Drug Use: No Physically hurt or threatened: No Family History Family history of heart diseas: No Other family history htn Other Last Tetanus: Unknown Review of Systems Review of Systems Constitutional: Reports no symptoms EENTM: Reports no symptoms Cardiovascular: Reports no symptoms Respiratory: Reports no symptoms Gastrointestinal: Reports no symptoms Genitourinary: Reports no symptoms Musculoskeletal: Reports as per HPI Integumentary: Reports no symptoms Neurological: Reports no symptoms Psychological: Reports no symptoms Endocrine: Reports no symptoms Hematological/Lymphatic: Reports no symptoms Physical Exam Related Data Allergies: Coded Allergies: No Known Allergies (Unverified , 07/09/18) Triage Vital Signs Vital Signs Date Time Temp Pulse Resp B/P (MAP) Pulse Ox O2 Delivery O2 Flow Rate FiO2 05/17/20 23:44 05/18/20 00:42 62 17 100 Physical Exam CONSTITUTIONAL Constitutional: Present well-developed, Present well-nourished HENT HENT: Present normocephalic, Present atraumatic, Present oropharynx clear/moist, Present nose normal HENT L/R: Present left ext ear normal, Present right ext ear normal EYES Eyes: Reports PERRL, Reports conjunctivae normal NECK Neck: Present ROM normal PULMONARY Pulmonary: Present effort normal, Present breath sounds normal CARDIOVASCULAR Cardiovascular: Present regular rhythm, Present heart sounds normal, Present capillary refill normal, Present normal rate GASTROINTESTINAL Abdominal: Present soft, Present nontender, Present bowel sounds normal GENITOURINARY Genitourinary: Present exam deferred SKIN Skin: Present warm, Present dry MUSCULOSKELETAL Musculoskeletal: Present ROM normal, Present tenderness (to right shoulder and right trapezius muscle, ), Present other (pain with rom of right shoulder) NEUROLOGICAL Neurological: Present alert, Present oriented x 3, Present no gross motor or sensory deficits PSYCHOLOGICAL Psychological: Present mood/affect normal, Present judgement normal Procedures 12 Lead ECG Interpretation ECG Interpretation : ECG: ECG 1 Lead Security Officer: Interpreted by ED physician Date: May 17, 2020 Time: 23:55 Rhythm: sinus rhythm Rate: normal BPM: 63 QRS axis: normal ST segments normal: Yes T waves normal: Yes Other findings: no other findings Clinical Impression: normal ECG Assessment & Plan Medical Decision Making MDM pt with right shoulder pain worse with movement ekg ordered to eval for cardiac abnormality toradol 60 mg im ordered pt discharged with naproxen 500 mg po bid #14, flexeril 10 mg 1 po q 8 hours prn muscle spasm Assessment & Plan Final Impression: (1) Right shoulder strain Depart Disposition: HOME, SELF-CARE Last Vital Signs Date Time Temp Pulse Resp B/P (MAP) Pulse Ox O2 Delivery O2 Flow Rate FiO2 05/18/20 00:42 62 17 122/97 100 Home Meds Active Scripts Benzonatate (TESSALON PERLE) 100 Mg Capsule, 2 CAP PO TID PRN for COUGH, #20 CAP Prov:ILYA JOVEL MD 11/20/17 Albuterol Sulf* (PROAIR HFA INHALER*) 8.5 Gm Inh, 1 DOSE INH Q4-6HR PRN for SHORTNESS OF BREATH, #1 INH Prov:ILYA JOVEL MD 11/20/17 Methylprednisolone (METHYLPREDNISOLONE) 4 Mg Tab.ds.pk, 1 DOSE PO DAILY for 6 Days, #1 PACKET Prov:ILYA JOVEL MD 11/20/17 Reported Medications Diazepam (DIAZEPAM) 5 Mg Tablet, 5 MG PO Daily, #30 TAB 11/20/17 Baclofen (BACLOFEN) 10 Mg Tablet, 10 MG PO Q8H PRN for MUSCLE SPASMS, #90 TAB 02/24/16 Acetaminophen/Codeine* (TYLENOL # 3*) 1 Ea Tab, 1 TAB PO PRN 02/02/15 Dicyclomine Hcl (BENTYL) 10 Mg Capsule, 10 MG PO PRN, CAP 02/02/15 Promethazine Hcl* (PHENERGAN SUPP*) 25 Mg Supp, [address] PRN 02/02/15 Ondansetron Hcl (ZOFRAN) 8 Mg Tablet, 8 MG PO PRN 02/02/15 Sertraline Hcl (ZOLOFT) 50 Mg Tablet, 50 MG PO DAILY, #30 TAB 02/02/15 Clonazepam (KLONOPIN) 0.5 Mg Tablet, 0.5 MG PO DAILY 02/02/15 Gabapentin (GABAPENTIN) 300 Mg Capsule, 300 MG PO HS, #60 CAP 02/02/15 Atorvastatin Calcium (LIPITOR) 20 Mg Tablet, 20 MG PO DAILY, #30 TAB 02/02/15 Amlodipine Besylate (NORVASC) 5 Mg Tab, 5 MG PO DAILY, #30 TAB 02/02/15 Medications in the ED Ketorolac Tromethamine 60 mg ONCE ONCE IM Last administered on 05/18/20at 00:40; Admin Dose 60 MG; Start 05/17/20 at 23:45; Stop 05/17/20 at 23:57; Status DC STORM PARADA MD May 18, 2020 00:50
== END 2020-05-18 01:00 | disposition home or self-care (01) ==
LOC: ER 23:50
DX: M25.511 Pain in right shoulder (principal); S46.911A Strain of unspecified muscle, fascia and tendon at shoulder and upper arm level, right arm, initial encounter; X50.9XXA Other and unspecified overexertion or strenuous movements or postures, initial encounter; I10 Essential (primary) hypertension; E78.5 Hyperlipidemia, unspecified; Z85.038 Personal history of other malignant neoplasm of large intestine
CPT/HCPCS: 93005; 99283; J1885

== ENCOUNTER 2023-11-17 23:38 | Emergency (ER) | payer OTHER ==
[~2023-11-17] VITALS: Ht 147.3 cm; Wt 72.1 kg
[2023-11-18 00:06] LABS: BASOPHILS % 0.2 % (0.0-1.0); EOSINOPHILS % 0.6 % (0.0-6.0); HEMATOCRIT 40.4 % (34.2-44.1); LYMPHOCYTES # (AUTO) 2.5 (1.0-3.2); LYMPHOCYTES % 52.6 % (18.0-39.1); MEAN CORPUSCULAR HEMOGLOBIN 29.5 pg (28-32); MEAN CORPUSCULAR HGB CONC 32.2 g/dL (31-35); MEAN CORPUSCULAR VOLUME 91.6 fL (81-99); MONOCYTES # (AUTO) 0.6 (0.2-0.8); MONOCYTES % 11.8 % (4.4-11.3); NEUTROPHILS # (AUTO) 1.6 (2.1-6.9); NEUTROPHILS % 34.6 % (38.7-80.0); PLATELET COUNT 216 x10e3/uL (140-360); RED BLOOD COUNT 4.41 x10e6/uL (3.6-5.1); WHITE BLOOD COUNT 4.66 x10e3/uL (4.8-10.8)
[2023-11-18 00:38] LABS: ALBUMIN 3.6 g/dL (3.5-5.0); ALBUMIN/GLOBULIN RATIO 0.9 (0.8-2.0); ANION GAP 13.1 mmol/L (8-16); BILIRUBIN,TOTAL 0.3 mg/dL (0.2-1.2); CALCIUM 8.8 mg/dL (8.4-10.2); CREATININE, SERUM 0.79 mg/dL (0.57-1.11); LIPASE 18 U/L (8-78); POTASSIUM 3.1 mmol/L (3.5-5.1); TOTAL PROTEIN 7.5 g/dL (6.5-8.1)
[2023-11-18 00:48] LABS: TROPONIN I < 0.001 ng/mL (0-0.300)
[2023-11-18] MEDS ORDERED: ONDANSETRON ODT4 MG SL (01:04)
[2023-11-18 01:17] VITALS: BP 175/86; PULSE 54; RESP 15; TEMP 98.2; O2SAT 99
== END 2023-11-18 01:15 | disposition home or self-care (01) ==
LOC: ER 11-18
DX: R05.9 Cough, unspecified (principal); J10.1 Influenza due to other identified influenza virus with other respiratory manifestations; R11.0 Nausea; I10 Essential (primary) hypertension; E78.5 Hyperlipidemia, unspecified; E78.00 Pure hypercholesterolemia, unspecified; F41.9 Anxiety disorder, unspecified; Z11.52 Encounter for screening for COVID-19; R94.31 Abnormal electrocardiogram [ECG] [EKG]; Z85.3 Personal history of malignant neoplasm of breast; Z85.43 Personal history of malignant neoplasm of ovary; Z85.038 Personal history of other malignant neoplasm of large intestine
CPT/HCPCS: 36415; 71045; 80053; 83690; 83880; 84484; 85025; 85379; 87400; 93005; 99284; U0002